=== PATIENT | male | born 1980 | race Caucasian/White ===

== ENCOUNTER 2016-07-01 08:12 | Inpatient (IN) | payer OTHER ==
[~2016-07-01] VITALS: Ht 185.4 cm; Wt 110.8 kg
[~2016-07-01 08:12] MED LIST: MULTIVIT PO; TRAZ100T OR; ZOLO100T OR
[2016-07-01] MEDS ORDERED: OLAN15TA PO (08:25)
[2016-07-01] MEDS ORDERED: FLUO20CA8 PO (08:25)
[2016-07-01] MEDS ORDERED: LOSA50TA20 PO (08:25)
[2016-07-01] MEDS ORDERED: HYDR25T PO (08:25)
[2016-07-01] MEDS ORDERED: ALEV220C2 PO (08:25)
[2016-07-01] MEDS ORDERED: KETOROLAC 30 MG/ML VIAL (J1885) IV ONE (08:45)
[2016-07-01] MEDS: SENOKOT S TAB PO SCH ×2 (09:00→22:39)
[2016-07-01 09:17] LABS: BASO % 0.3 % (0.0-1.0); EOS % 0.5 % (0.0-3.0); LARGE UNSTAINED CELL # 0.1 K/mm3 (0.0-0.4); LARGE UNSTAINED CELL % 0.7 % (0.0-4.0); LYMPH # 1.2 K/mm3 (1.5-4.5); LYMPH % 12.3 % (24.0-44.0); MEAN CORPUSCULAR HEMOGLOBIN 28.7 pg (27.0-33.0); MEAN CORPUSCULAR HGB CONC 34.9 g/dl (32.0-36.5); MEAN CORPUSCULAR VOLUME 82.2 fl (80.0-96.0); MONO # 0.6 K/mm3 (0.0-0.8); MONO % 6.2 % (0.0-5.0); NEUTROPHILS # 7.5 K/mm3 (1.8-7.7); NEUTROPHILS % 80.1 % (36.0-66.0); PLATELET COUNT, AUTOMATED 167 k/mm3 (150-450); RED CELL DISTRIBUTION WIDTH 12.5 % (11.5-14.5); WHITE BLOOD COUNT 9.4 K/mm3 (4.0-10.0)
--- NOTE | 2016-07-01 09:20 | REP ---
REASON: Chest pain. COMPARISON: 08/10/2013, the latest prior. The lung frye are hypoexpanded which crowds the basal vascularity. A few patchy opacities are seen in the left lower lobe representing a change from the prior exam. The cardiomediastinal silhouette is stable. The heart is not frankly enlarged. The osseous structures are stable and intact. IMPRESSION: Subsegmental atelectatic change left lower lobe versus early pneumonia. Correlate clinically. Signed by Oniel Conway DO 07/01/2016 09:24 A
[2016-07-01 09:24] LABS: ANION GAP 10 MEQ/L (8-16); BLOOD UREA NITROGEN 12 MG/DL (7-18); CARBON DIOXIDE LEVEL 25 MEQ/L (21-32); CHLORIDE LEVEL 104 MEQ/L (98-107); CREATININE FOR GFR 1.31 MG/DL (0.70-1.30); GLOMERULAR FILTRATION RATE > 60.0 (>60); GLUCOSE, FASTING 150 MG/DL (70-105); INR 1.03; SODIUM LEVEL 139 MEQ/L (136-145)
[2016-07-01] MEDS ORDERED: ISOVUE-370 76% 100ML VIAL (Q9967) As Ordered ONE (09:50)
--- NOTE | 2016-07-01 10:25 | REP ---
CT of the chest CT pulmonary angiography: Comparison is 08/10/2013. There is a large embolus in the distal left central pulmonary artery. There are emboli in the proximal right upper lobe, right middle lobe and right lower lobe pulmonary arteries. Additionally, there is an embolus distally in the pulmonary artery to the posterior basilar segment of the right lower lobe. There is an infiltrate in the left lower lobe. The remainder of the lung frye are clear. There is no mediastinal or hilar adenopathy. Thoracic aorta is unremarkable. Cardiac size is normal. There is no pericardial effusion. The visualized upper abdominal contents are unremarkable. Impression: Bilateral pulmonary emboli as described. Left lower lobe infiltrate. Signed by Mitesh Wilkinson MD 07/01/2016 10:16 A
[2016-07-01] MEDS ORDERED: MORPHINE 4 MG/ML 1ML SYRINGE IV ONE (10:30)
[2016-07-01] MEDS ORDERED: ENOXAPARIN 120 MG/0.8 ML SYR (J1650) SC ONE (10:45)
--- NOTE | 2016-07-01 11:19 | ECGEPIP ---
Stationary ECG Study [facility] - ED Test Date: 2016-07-01 Pat Name: JANI PEPE Department: Room: - Gender: M Marketing Clerk: EDUARDO : 1980 Requested By: Kyle Roy PA-C Order Number: [id number] Reading MD: Roberto Starks Measurements Intervals [place] Rate: 107 P: 37 NE: 123 QRS: 5 QRSD: 90 T: 14 QT: 315 QTc: 422 Interpretive Statements SINUS TACHYCARDIA NONSPECIFIC T-WAVE ABNORMALITY SIMILAR TO 08/10/13 Electronically Signed On 07-01-2016 11:18:51 EDT by Roberto Starks
[2016-07-01] MEDS ORDERED: VITMTA PO (11:40)
[2016-07-01] MEDS ORDERED: NS 1,000 ML IV SCH (13:00)
[2016-07-01] MEDS ORDERED: ONDANSETRON 4MG/2ML VIAL (J2405) IV PRN (13:00)
[2016-07-01] MEDS ORDERED: ELIQ5TAB PO (13:15)
--- NOTE | 2016-07-01 13:58 | REP ---
BILATERAL LOWER EXTREMITY DOPPLER VENOUS ULTRASOUND: Comparison: 08/10/2013. Clinical history: Swelling, rule out DVT. Technique: The deep venous system of the bilateral lower extremities is evaluated with mandel scale imaging, compression ultrasound, color imaging and duplex Doppler interrogation. Examination from the groin through the popliteal fossa into the proximal calf. Findings: There is full compressibility from the common femoral vein in the inguinal region through the popliteal vein on both sides. Color imaging confirms patency throughout the course of the deep venous system. There is respiratory variation and augmented flow at all levels. Impression: 1. No Doppler venous ultrasound evidence of DVT in the bilateral lower extremities. Signed by Zuhair Son MD 07/01/2016 01:49 P
--- NOTE | 2016-07-01 15:11 | HPE ---
DATE OF ADMISSION: 07/01/2016 PRIMARY CARE PROVIDER: Dr. Halley Mireles CHIEF COMPLAINT: Chest pain with breathing. HISTORY OF PRESENT ILLNESS: This is a 36-year-old male patient with underlying medical history of hypertension, anxiety, depression, and umbilical hernia following with Dr. Blue. As per patient, he has not been working these days, has mainly been sedentary due to umbilical hernia and starting at 8:00 p.m. last night, patient had acute onset left-sided chest pain that is pleuritic in nature, worse with deep breathing, relieved with sitting up, worse when lying down, radiating to the back, 10/10, sharp. Patient recently has been sedentary due to umbilical hernia. Patient denies any shortness of breath, palpitations, abdominal pain, bleeding, or bruising. Denies smoking or drug use. No recent travel, long flights or long drives. Baseline ambulatory. Also reported two weeks ago with left-sided thigh pain that has since then resolved. ALLERGIES: No known drug allergies. PAST MEDICAL HISTORY: 1. Hypertension. 2. Depression. 3. Anxiety. PAST SURGICAL HISTORY: Right foot surgery. SOCIAL HISTORY: Patient currently is unemployed. He lives at home. Does not smoke or drink alcoholic beverages. FAMILY HISTORY: Grandfather with myocardial infarction ([place]) in age 60s. Family history of colon cancer and diabetes. REVIEW OF SYSTEMS: 11-point review of systems negative except for those mentioned in the history of present illness (HPI). HOME MEDICATIONS: - Aleve 440 mg by mouth as needed - fluoxetine 20 mg by mouth every evening - hydroxyzine 25 mg by mouth twice a day - losartan 50 mg by mouth every evening - multivitamin one tablet by mouth daily - olanzapine 15 mg by mouth at bedtime PHYSICAL EXAMINATION: VITAL SIGNS: Temperature 97.8, pulse 113, respiratory rate 20, blood pressure 131/77, pulse oximetry 94% on room air. GENERAL: Patient alert and oriented times three in no acute distress. HEENT: Normocephalic, atraumatic. PULMONARY: Mild rhonchi, left base. CARDIAC: Regular rate and rhythm, mild tachycardia, S1, S2. ABDOMEN: Soft, nontender. Umbilical hernia reducible. No rebound. No guarding. Positive bowel sounds. EXTREMITIES: No edema of bilateral lower extremities. EKG: Sinus tachycardia 1/7, T wave inversion in V1, V2. LABORATORY DATA: WBC 9.4, hemoglobin and hematocrit 16.4/46.9, platelets 167. Chemistry: Sodium 139, potassium 4, chloride 104, bicarbonate 25, BUN 12, creatinine 1.3. Cardiac enzymes negative times two. C-reactive protein 4.87, A1c 5. CT angiogram shows bilateral PE, left lower lobe infiltrates. ASSESSMENT AND PLAN: This is a 36-year-old male patient with underlying medical history of umbilical hernia, hypertension, depression, and anxiety admitted with bilateral pulmonary embolism (PE) and questionable community-acquired bacterial pneumonia. 1. Chest pain, secondary to bilateral PE. Cardiac enzyme negative times two. Patient given a dose of Lovenox, started on Eliquis for PE. CT angiogram appreciated. Possible alternative etiology pneumonia. We will continue to monitor the patient on telemetry. 2. Bilateral PE. Patient given a dose of Lovenox. Hypercoagulable workup has been sent. Outpatient followup with primary care provider for an age appropriate oncologic workup. PE with unknown etiology. Lovenox given. Patient currently on Eliquis. Patient and family services (PFS) consulted for possible prior authorization. 3. Acute kidney injury (WILLY), likely secondary to taking of nonsteroidal antiinflammatory drugs (NSAIDs) at home. IV hydration, monitor blood urea nitrogen (BUN) and creatinine. 4. Depression and anxiety. Continue home medications. 5. Hypertension. Monitor blood pressure. Holding angiotensin receptor blockers (ARBs) given patient with worsening kidney function. 6. Umbilical hernia. Outpatient followup. 7. Questionable left lower lobe community-acquired bacterial pneumonia versus pulmonary infarct. Followup C-reactive protein appreciated. Empirically started on Rocephin and azithromycin. Followup respiratory panel and blood cultures. We will continue to monitor. 8. Deep vein thrombosis (DVT) prophylaxis. Patient is on treatment for PE on Eliquis. DISPOSITION: Pending patient and family services (PFS), clinical improvement, prior authorization for Eliquis.
[2016-07-01 16:15] VITALS: BP 105/57
[2016-07-01] MEDS: MULTIVITAMINS/MINERALS THERAP 1 TAB PO SCH (16:56)
[2016-07-01] MEDS: PERCOCET 5MG/325MG TAB PO PRN ×2 (16:58→22:41)
[2016-07-01] MEDS: cefTRIAXone SOD 2 GM in D5W MINI-BAG PLUS 50 ML IV SCH (16:58)
[2016-07-01] MEDS: AZITHROMYCIN INJ 500 MG, VIAL MATE ADAPTER 1 EACH in D5W 250 ML IV SCH (17:58)
[2016-07-01 20:03] VITALS: BP 100/57
[2016-07-01] MEDS: hydrOXYzine 25 MG TAB PO SCH (20:32)
[2016-07-01] MEDS: OLANZapine 5 MG TAB PO SCH (20:32)
[2016-07-01] MEDS: APIXABAN 5 MG TAB (ELIQUIS) PO SCH (20:33)
[2016-07-01] MEDS: FLUoxetine 20 MG CAP PO SCH (20:33)
[2016-07-01 21:21] VITALS: BP 117/71
[2016-07-02] VITALS (7 sets, daily range): BP systolic 100–136; BP diastolic 57–87
[2016-07-02 06:12] LABS: MEAN CORPUSCULAR HEMOGLOBIN 29.1 pg (27.0-33.0); MEAN CORPUSCULAR HGB CONC 34.7 g/dl (32.0-36.5); RED CELL DISTRIBUTION WIDTH 12.6 % (11.5-14.5); WHITE BLOOD COUNT 6.3 K/mm3 (4.0-10.0)
[2016-07-02] MEDS: PERCOCET 5MG/325MG TAB PO PRN ×3 (06:23→17:28)
[2016-07-02 06:29] LABS: ANION GAP 7 MEQ/L (8-16); BLOOD UREA NITROGEN 14 MG/DL (7-18); CALCIUM LEVEL 8.3 MG/DL (8.5-10.1); CARBON DIOXIDE LEVEL 27 MEQ/L (21-32); CHLORIDE LEVEL 106 MEQ/L (98-107); CREATININE FOR GFR 1.03 MG/DL (0.70-1.30); GLOMERULAR FILTRATION RATE > 60.0 (>60); GLUCOSE, FASTING 98 MG/DL (70-105); MAGNESIUM LEVEL 2.2 MG/DL (1.8-2.4); POTASSIUM SERUM 4.3 MEQ/L (3.5-5.1); SODIUM LEVEL 140 MEQ/L (136-145)
[2016-07-02] MEDS: SENOKOT S TAB PO SCH ×2 (08:29→20:29)
[2016-07-02] MEDS: APIXABAN 5 MG TAB (ELIQUIS) PO SCH ×2 (08:29→20:29)
[2016-07-02] MEDS: hydrOXYzine 25 MG TAB PO SCH ×2 (08:29→20:29)
[2016-07-02] MEDS: MULTIVITAMINS/MINERALS THERAP 1 TAB PO SCH (08:29)
--- NOTE | 2016-07-02 13:16 | IPN ---
DATE: 07/02/2016 The patient seen and examined. No acute events overnight. He denies any fevers or chills. Continued to report left sided pleuritic chest pain radiating to the left shoulder and neck. Denies any shortness of breath, coughing, abdominal pain, diarrhea, constipation. Denies any significant bleeding. VITAL SIGNS: Temperature 97. Pulse 71. Respirations 18. Blood pressure 118/74. Pulse oximetry 95% on 3 liters nasal cannula. LABORATORY: WBC 6.3, hemoglobin and hematocrit 13.7 over 39.6, and platelets 115. Chemistry with sodium 140, potassium 4.3, chloride 106, bicarbonate 27, BUN 14, creatinine 1.03. PHYSICAL EXAMINATION: GENERAL: Patient is alert and oriented times three in no acute distress. HEENT: Normocephalic, atraumatic. NECK: Supple. No nuchal rigidity. PULMONARY: Mild left basilar rhonchi. CARDIAC: Regular rate and rhythm. Normal S1, S2. ABDOMEN: Soft. Nontender. No rebound. No guarding. Positive bowel sounds. EXTREMITIES: No edema of bilateral lower extremities. ASSESSMENT AND PLAN: This is a 36-year-old male patient with underlying medical history of umbilical hernia, hypertension, depression, anxiety, admitted with bilateral pulmonary embolism (PE) and questionable community acquired bacterial pneumonia. PROBLEMS: 1. Chest pain secondary to bilateral PE. Cardiac enzymes negative times two. One dose of Lovenox given. Patient currently on Eliquis. CT angiogram appreciated. Ultrasound Doppler negative for deep vein thrombosis. Alternative explanation of pneumonia. Continue to monitor on telemetry. 2. Possible community acquired bacterial pneumonia. CT scan shows evidence of pneumonia with elevated C-reactive protein. Alternative explanation pulmonary infarct. Will empirically start the patient on Rocephin and azithromycin. Follow up C-reactive protein. Follow up cultures. 3. Acute kidney injury (WILLY), likely secondary to taking NSAID. IV hydration given. BUN and creatinine currently returning to baseline. 4. Anxiety and depression. Continue home medications. 5. Hypertension. Monitor blood pressure with holding MIGUE inhibitors given worsening kidney function. 6. Umbilical hernia. Outpatient followup. 7. Deep vein thrombosis prophylaxis. Patient on Eliquis for PE. DISPOSITION: Patient's Eliquis has been approved. Pending clinical improvement, likely discharge in the next 24-48 hours.
[2016-07-02] MEDS: cefTRIAXone SOD 2 GM in D5W MINI-BAG PLUS 50 ML IV SCH (14:30)
[2016-07-02] MEDS: AZITHROMYCIN INJ 500 MG, VIAL MATE ADAPTER 1 EACH in D5W 250 ML IV SCH (15:22)
--- NOTE | 2016-07-02 16:18 | REP ---
DUPLEX CAROTID ULTRASOUND COMPLETE: 07/02/2016. Clinical history: Left-sided neck pain and 36-year-old male. No prior study. Findings: Standard duplex techniques utilized. The right common carotid is without softer calcific plaque. There is small amounts of soft plaque at the bulb and extending to the proximal ICA and ECA. The left common carotid shows no softer calcific plaque except at the distal carotid bulb region where there is small amount of soft plaque of this is seen extending into the proximal ICA and ECA as on the right side. Peak velocities: CCA systolic right 1.01 M/S left 1.20 M/S ICA systolic right 0.82 M/S left 1.21 M/S ICA diastolic right through 0.16 less of 0.33 M/S ECA systolic right 1.23 left 1.0 seventh/S IC/CC ratio right 0.81 left 1.0 Cranial directional flow is seen in both vertebral arteries. There is no spectral broadening or filling in of the systolic window for either internal carotid artery. Impression: 1. Bilateral mild carotid disease (less than 50% stenosis). No hemodynamically significant or flow restricting lesion. 2. Cranial directional flow of the vertebral arteries. Signed by Zuhair Son MD 07/02/2016 04:09 P
[2016-07-02] MEDS: MORPHINE 2 MG/ML 1ML SYRINGE IV PRN ×2 (20:28→23:52)
[2016-07-02] MEDS: OLANZapine 5 MG TAB PO SCH (20:29)
[2016-07-02] MEDS: FLUoxetine 20 MG CAP PO SCH (20:29)
[2016-07-03 04:00] VITALS: BP 123/71
[2016-07-03] MEDS: MORPHINE 2 MG/ML 1ML SYRINGE IV PRN (04:08)
[2016-07-03 05:20] LABS: MEAN CORPUSCULAR HEMOGLOBIN 28.7 pg (27.0-33.0); MEAN CORPUSCULAR HGB CONC 34.3 g/dl (32.0-36.5); MEAN CORPUSCULAR VOLUME 83.6 fl (80.0-96.0); RED CELL DISTRIBUTION WIDTH 12.5 % (11.5-14.5)
[2016-07-03 05:38] LABS: ANION GAP 14 MEQ/L (8-16); BLOOD UREA NITROGEN 10 MG/DL (7-18); CALCIUM LEVEL 8.6 MG/DL (8.5-10.1); CARBON DIOXIDE LEVEL 24 MEQ/L (21-32); CHLORIDE LEVEL 110 MEQ/L (98-107); CREATININE FOR GFR 0.84 MG/DL (0.70-1.30); GLOMERULAR FILTRATION RATE > 60.0 (>60); GLUCOSE, FASTING 107 MG/DL (70-105); MAGNESIUM LEVEL 2.1 MG/DL (1.8-2.4); POTASSIUM SERUM 4.2 MEQ/L (3.5-5.1); SODIUM LEVEL 148 MEQ/L (136-145)
[2016-07-03] MEDS: PERCOCET 5MG/325MG TAB PO PRN ×3 (06:41→18:37)
[2016-07-03 08:00] VITALS: BP 107/66
[2016-07-03] MEDS: hydrOXYzine 25 MG TAB PO SCH ×2 (09:21→20:15)
[2016-07-03] MEDS: MULTIVITAMINS/MINERALS THERAP 1 TAB PO SCH (09:21)
[2016-07-03] MEDS: SENOKOT S TAB PO SCH ×2 (09:21→20:15)
[2016-07-03] MEDS: APIXABAN 5 MG TAB (ELIQUIS) PO SCH ×2 (09:21→20:16)
--- NOTE | 2016-07-03 10:05 | REP ---
CHEST X-RAY: Two views. HISTORY: Chest pain. Comparison study July 01, 2016. FINDINGS: There is a fairly large dense new infiltrate in the left lower lobe behind the heart on the frontal and lateral radiographs. Right lung is unchanged and unremarkable. Heart itself is not enlarged. Pulmonary vasculature is not increased. EKG monitoring electrodes and oxygen tubing are seen. IMPRESSIONS: Large dense new infiltrate left lower lobe consistent with pneumonia. Signed by Gary Bender MD 07/03/2016 01:58 P
[2016-07-03 12:00] VITALS: BP 119/73
[2016-07-03] MEDS: cefTRIAXone SOD 2 GM in D5W MINI-BAG PLUS 50 ML IV SCH (13:55)
[2016-07-03] MEDS: AZITHROMYCIN 250 MG TAB PO SCH (13:56)
--- NOTE | 2016-07-03 15:38 | IPN ---
DATE: 07/03/2016 SUBJECTIVE: Patient seen and examined. No acute events overnight. Reported chest pain about the same as yesterday, but yesterday afternoon was slightly worse. Denies any fevers, chills, any significant cough or shortness of breath. VITAL SIGNS: Temperature 99.1, pulse 67, respirations 18, blood pressure 119/73, pulse oximetry 94% on room air. LABORATORY DATA: WBC 6, hemoglobin and hematocrit 13.3 over 38.6, platelets 131. Chemistry: Sodium 148, potassium 4.2, chloride 110, bicarbonate 24, BUN 10, creatinine 0.84. PHYSICAL EXAMINATION: GENERAL: Patient alert and oriented times three, no acute distress. HEENT: Normocephalic, atraumatic. NECK: Supple. No nuchal rigidity. PULMONARY: Mild left bibasilar rhonchi. CARDIAC: Regular rate and rhythm. Normal S1, S2. ABDOMEN: Soft, nontender. Positive bowel sounds. No rebound, no guarding. EXTREMITIES: No edema bilateral lower extremities. ASSESSMENT AND PLAN: This is a 36-year-old male patient with underlying medical history of umbilical hernia, hypertension, depression, anxiety, admitted with bilateral pulmonary emboli, with questionable community-acquired lobar bacterial pneumonia. 1. Chest pain secondary to bilateral pulmonary emboli (PE) versus pneumonia. Cardiac enzymes negative times two. Patient given one dose of Lovenox. Currently on Eliquis. CT angiogram appreciated. Ultrasound Doppler negative for deep venous thrombosis (DVT). Continue to monitor telemetry. 2. Possible lobar community-acquired bacterial pneumonia. CT shows evidence of pneumonia with elevated C-reactive protein. Alternative explanation pulmonary infarct. Will empirically start the patient on Rocephin and Zithromax. Followup C-reactive protein. Followup cultures. 3. Acute kidney injury (WILLY) likely secondary to non-steroidal anti-inflammatory drugs (NSAIDs). Intravenous (IV) fluids given. BUN and creatinine returned to baseline. 4. Anxiety and depression. Continue home medications. 5. Hypertension. Monitor blood pressure. Withholding angiotension-converting enzyme (MIGUE) inhibitors, given worsening kidney function. We will continue to monitor. Will restart blood pressure medication if patient is hypertensive. 6. Umbilical hernia. Outpatient followup with [facility]. 7. Deep venous thrombosis (DVT) prophylaxis. Patient on Eliquis for treatment of PE. DISPOSITION: Eliquis has been approved. Pending clinical improvement.
[2016-07-03 16:00] VITALS: BP 120/76
[2016-07-03] MEDS: OLANZapine 5 MG TAB PO SCH (20:15)
[2016-07-03] MEDS: FLUoxetine 20 MG CAP PO SCH (20:15)
[2016-07-03 20:20] VITALS: BP 126/65
[2016-07-03 23:59] VITALS: BP 126/69
[2016-07-04] MEDS ORDERED: SLF 3 ML SYR IV PRN (01:15)
[2016-07-04] MEDS: PERCOCET 5MG/325MG TAB PO PRN ×2 (01:34→08:32)
[2016-07-04 04:45] VITALS: BP 123/70
[2016-07-04 05:37] LABS: ANION GAP 8 MEQ/L (8-16); BLOOD UREA NITROGEN 9 MG/DL (7-18); CALCIUM LEVEL 7.9 MG/DL (8.5-10.1); CARBON DIOXIDE LEVEL 28 MEQ/L (21-32); CHLORIDE LEVEL 106 MEQ/L (98-107); CREATININE FOR GFR 0.85 MG/DL (0.70-1.30); GLOMERULAR FILTRATION RATE > 60.0 (>60); GLUCOSE, FASTING 97 MG/DL (70-105); MAGNESIUM LEVEL 2.2 MG/DL (1.8-2.4); SODIUM LEVEL 142 MEQ/L (136-145)
[2016-07-04 05:39] LABS: MEAN CORPUSCULAR HEMOGLOBIN 29.2 pg (27.0-33.0); MEAN CORPUSCULAR HGB CONC 34.8 g/dl (32.0-36.5); RED CELL DISTRIBUTION WIDTH 12.4 % (11.5-14.5); WHITE BLOOD COUNT 4.8 K/mm3 (4.0-10.0)
[2016-07-04] MEDS ORDERED: SLF 3 ML SYR IV SCH (06:00)
[2016-07-04 08:00] VITALS: BP 123/69
[2016-07-04] MEDS: APIXABAN 5 MG TAB (ELIQUIS) PO SCH (08:32)
[2016-07-04] MEDS: MULTIVITAMINS/MINERALS THERAP 1 TAB PO SCH (08:32)
[2016-07-04] MEDS: hydrOXYzine 25 MG TAB PO SCH (08:32)
[2016-07-04] MEDS: AZITHROMYCIN 250 MG TAB PO SCH (08:33)
[2016-07-04] MEDS: SENOKOT S TAB PO SCH (08:33)
[2016-07-04] MEDS ORDERED: NORC5TAB PO (09:05)
[2016-07-04] MEDS ORDERED: CEFD1CAP8 PO (09:05)
--- NOTE | 2016-07-05 19:43 | DSES ---
DATE OF ADMISSION: 07/01/2016 DATE OF DISCHARGE: 07/04/2016 PRIMARY CARE PROVIDER: Dr. Halley Mireles. FINAL DIAGNOSES: 1. Bilateral pulmonary emboli. 2. Left lower lobe community-acquired bacterial pneumonia. 3. Acute kidney injury (WILLY) secondary to non-steroidal anti-inflammatory drugs (NSAIDS). 4. Anxiety/depression. 5. Umbilical hernia. HISTORY OF PRESENT ILLNESS: This is a 36-year-old male patient with underlying medical history of hypertension, anxiety, depression, umbilical hernia, follows up with Dr. Blue. As per patient, he has not been working or moving much these days due to umbilical hernia. Has been sedentary. Starting 8 p.m. the night before admission, the patient developed acute onset left-sided chest pain that is pleuritic in nature, radiating to the back and left shoulder when sitting up, worsening when lying down, relieved with sitting up, 10/10, sharp. Denies any shortness of breath, palpitations, abdominal pain, bleeding, bruising, nausea, vomiting. Denies smoking. No recent travel. No long flights or long drives. Baseline ambulatory. Does report episodes of left thigh pain for the past couple of weeks ago. HOSPITAL COURSE: The patient was found to have bilateral pulmonary emboli (PE) and questionable left lower lobe pneumonia on the CT scan. Started on Rocephin and azithromycin. Given a dose of Lovenox. Was started on Eliquis. Patient and family services (PFS) consulted for prior authorization which was approved. Ultrasound Doppler negative for deep venous thrombosis (DVT). Carotid Doppler is negative for dissections. C-reactive protein progressively trended down. Cultures were negative. Intravenous (IV) fluids were given. WILLY has solved back to baseline. NSAID has been discontinued. The patient's home medication was restarted. Blood pressure medication has also been held given patient is normotensive. DVT prophylaxis is provided with Eliquis. The patient currently tolerating oral, comfortable, in no acute distress, ready for discharge for further care as outpatient. Pain medication was given. VITAL SIGNS: Temperature 98.4, pulse 56, respirations 18, blood pressure 123/69, pulse oximetry 93% on room air. LABORATORY DATA: WBC 4.8, hemoglobin and hematocrit 12.7 over 36.6, platelets 154. Chemistry: Sodium 142, potassium 4, chloride 106, bicarbonate 28, BUN 9, creatinine 0.85. DISCHARGE MEDICATIONS: - [place] 5/325 one tablet by mouth every six hours as needed, 12 tablets prescribed - Eliquis 5 mg tablet take two tablets by mouth twice a day, and then take 5 mg by mouth twice a day - cefdinir 300 mg by mouth twice a day for six more days Patient's home medications of fluoxetine 20 mg by mouth daily, hydroxyzine 25 mg by mouth twice a day, multivitamin one tablet by mouth daily, and olanzapine 50 mg by mouth at bedtime were continued. Losartan was discontinued, as well as Aleve was discontinued. DISCHARGE INSTRUCTIONS: The patient is instructed to followup with primary care provider in seven days. Followup hypercoagulable workup that was done at the hospital. Return to the hospital if symptoms worsen.
[2016-07-06 14:11] LABS: PROTEIN C ANTIGEN 90 % (60-150); PROTEIN S ANTIGEN FREE 70 % (57-157); PROTEIN S ANTIGEN TOTAL 149 % (60-150); SJOGREN'S ANTI SS-A <0.2 AI (0.0-0.9); SJOGREN'S ANTI SS-B <0.2 AI (0.0-0.9)
== END 2016-07-04 11:19 | disposition home or self-care (01) | DRG 134 ==
LOC: M ED 10:17 → M ED INP 12:56 → M PCU 21:01
PROVIDERS: ADMIT Hospitalist; ATTEND Hospitalist
DX: I26.99 Other pulmonary embolism without acute cor pulmonale (principal); J15.9 Unspecified bacterial pneumonia; N17.9 Acute kidney failure, unspecified; F41.9 Anxiety disorder, unspecified; F32.9 Major depressive disorder, single episode, unspecified; K42.9 Umbilical hernia without obstruction or gangrene; I10 Essential (primary) hypertension; Z79.899 Other long term (current) drug therapy

== ENCOUNTER → 2016-08-10 | Outpatient (CLI) | payer OTHER ==
[~2016-08-10] MED LIST changes: +ALEV220C2 PO; +CEFD1CAP8 PO; +ELIQ5TAB PO; +FLUO20CA8 PO; +HYDR25T PO; +LOSA50TA20 PO; +NORC1TAB4 PO; +OLAN15TA PO; +VITMTA PO
--- NOTE | 2016-08-10 14:09 | REP ---
Chest two views HISTORY: Hypertension Comparison: 07/03/2016 The lungs are clear. The heart is normal in size. The pulmonary vasculature is normal in appearance. The bony structure is intact. IMPRESSION: No acute disease. Signed by Alonzo El MD 08/10/2016 02:01 P
== END ==
LOC: M WUC 13:38
PROVIDERS: ATTEND Family Medicine
DX: I10 Essential (primary) hypertension (principal)

== ENCOUNTER 2016-12-29 05:49 | Day surgery (SDC) | payer OTHER ==
[~2016-12-29] VITALS: Ht 185.4 cm; Wt 116.6 kg
[~2016-12-29 05:49] MED LIST changes: +HYDR-3363 PO; -HYDR25T PO; +LITH300C PO
[2016-12-29] MEDS ORDERED: LR 1,000 ML IV SCH ×3 (06:00→10:45)
[2016-12-29] MEDS ORDERED: ceFAZolin SOD 1 GM in D5W MINI-BAG PLUS 50 ML IV ONE (06:00)
[2016-12-29] MEDS ORDERED: BUPIVACAINE/EPIN 0.25% 30 ML VIAL As Ordered ONE ×2 (07:18→08:37)
[2016-12-29] MEDS ORDERED: LIDOCAINE 2% INJ 100 MG/5 ML SDV (FOR ANES.) As Ordered ONE (09:23)
[2016-12-29] MEDS ORDERED: fentaNYL 100 MCG/2 ML INJECTION (J3010) As Ordered ONE ×2 (09:23→10:11)
[2016-12-29] MEDS ORDERED: PROPOFOL 200 MG/20 ML VIAL As Ordered ONE ×2 (09:23→09:43)
[2016-12-29] MEDS ORDERED: dexameTHASONE 4 MG/ML 1ML VIAL (J1100) As Ordered ONE (09:23)
[2016-12-29] MEDS ORDERED: MIDAZOLAM INJ 2 MG/2 ML VIAL (J2250) As Ordered ONE (09:23)
[2016-12-29] MEDS ORDERED: KETOROLAC 60 MG/2 ML VIAL (J1885) As Ordered ONE (09:23)
[2016-12-29] MEDS ORDERED: ONDANSETRON 4MG/2ML VIAL (J2405) As Ordered ONE (09:24)
--- NOTE | 2016-12-29 10:08 | RO ---
DATE OF PROCEDURE: 12/29/2016 PREOPERATIVE DIAGNOSIS: Umbilical hernia. POSTOPERATIVE DIAGNOSIS: Umbilical hernia. PROCEDURE: Umbilical hernia with ventral patch. SURGEON: Miguel Ángel Loyola MD ANESTHESIA: General endotracheal anesthesia. ESTIMATED BLOOD LOSS: Minimal. FLUIDS: Crystalloid. BRIEF PROCEDURE SUMMARY: The patient was brought to the operating room and was given general anesthesia. After adequate anesthesia and preoperative antibiotics were given, the patient was prepped and draped in the usual sterile fashion. Next, a periumbilical incision was made with skin knife. Blunt dissection was carried down to fascia. Fascia was cleared of surrounding subcutaneous fat off the hernia sac itself circumferentially with electrocautery, as well as blunt dissection. Eventually, the dissection continued all the way to the base of the hernia sac and this was transected at the level of the fascia and there was some omentum that was sticking through this area that was somewhat incarcerated and it was transected after ligating its base with #2-0 Vicryl returned to the abdominal cavity. The fascial defect was relatively large, approximately 1.5 cm and the minimally attenuated fascia superiorly. Thus, I felt a ventral patch was warranted. A 6 cm ventral patch was placed and circumferentially this was palpated to be up against the peritoneum once it was inserted. Next, the tails of the mesh was sutured superiorly and inferiorly and the fascia was closed with three [id number] Ethibond sutures in a transverse manner. The subcutaneous tissue was brought together with the #3-0 Vicryl, #3-0 Vicryl for the dermis and #4-0 Vicryl subcuticular. Steri-Strips and dry sterile dressing was applied. The patient was awakened, extubated, brought to recovery room awake, alert and hemodynamically stable. Sponge and needle counts correct times two.
[2016-12-29] MEDS ORDERED: PERCOCET 5MG/325MG TAB As Ordered ONE (10:11)
[2016-12-29] MEDS: fentaNYL 100 MCG/2 ML INJECTION (J3010) IV PRN ×4 (10:14→10:30)
[2016-12-29] MEDS: PERCOCET 5MG/325MG TAB PO PRN ×2 (10:15→10:47)
[2016-12-29] MEDS ORDERED: ONDANSETRON 4MG/2ML VIAL (J2405) IV PRN ×2 (10:30→10:45)
[2016-12-29] MEDS ORDERED: MORPHINE 2 MG/ML 1ML SYRINGE IV PRN (10:45)
[2016-12-29 13:58] VITALS: BP 130/75
[2016-12-29] MEDS ORDERED: KETOROLAC 30 MG/ML VIAL (J1885) IV SCH (15:00)
== END 2016-12-29 14:10 | disposition home or self-care (01) ==
LOC: M SDC 05:49
PROVIDERS: ATTEND Surgery
DX: K42.9 Umbilical hernia without obstruction or gangrene (principal); F31.9 Bipolar disorder, unspecified; Z86.711 Personal history of pulmonary embolism; Z79.02 Long term (current) use of antithrombotics/antiplatelets; Z79.899 Other long term (current) drug therapy
CPT/HCPCS: 49585; 88302; C1781

== ENCOUNTER → 2017-05-15 | Outpatient (REF) | payer OTHER ==
[2017-05-15 14:35] LABS: INFLUENZA A AMPLIFICATION NEGATIVE (NEGATIVE); INFLUENZA B AMPLIFICATION NEGATIVE (NEGATIVE)
== END ==
LOC: M LAB REF 13:46
DX: J11.1 Influenza due to unidentified influenza virus with other respiratory manifestations (principal)
CPT/HCPCS: 87502

== ENCOUNTER 2017-05-20 15:45 | Emergency (ER) | payer OTHER ==
[2017-05-20] MEDS: ALBUTEROL SULFATE 2.5 MG/0.5 ML INH NEB SOLN INH (17:55)
[2017-05-20] MEDS: NS 1,000 ML IV (18:00)
[2017-05-20 18:19] LABS: BASO % 0.4 % (0.0-1.0); EOS # 0.1 10^3/uL (0.0-0.50); EOS % 1.1 % (0.0-3.0); HEMATOCRIT 48.7 % (42.0-52.0); HEMOGLOBIN 16.4 g/dl (14.0-18.0); IMMATURE GRANULOCYTE % 0.2 % (0-0); LYMPH # 1.4 10^3/uL (1.5-4.5); LYMPH % 29.5 % (24.0-44.0); MEAN CORPUSCULAR HEMOGLOBIN 28.5 pg (27.0-33.0); MEAN CORPUSCULAR HGB CONC 33.7 g/dl (32.0-36.5); MEAN CORPUSCULAR VOLUME 84.5 fl (80.0-96.0); MONO # 0.7 10^3/uL (0.0-0.8); MONO % 14.6 % (0.0-5.0); NEUTROPHILS # 2.6 10^3/uL (1.8-7.7); NEUTROPHILS % 54.2 % (36.0-66.0); PLATELET COUNT, AUTOMATED 140 10^3/uL (150-450); RED BLOOD COUNT 5.76 10^6/uL (4.30-6.10); RED CELL DISTRIBUTION WIDTH 12.9 % (11.5-14.5); WHITE BLOOD COUNT 4.7 10^3/uL (4.0-10.0)
[2017-05-20 18:29] LABS: PROTHROMBIN TIME 13.3 SECONDS (12.4-14.5)
[2017-05-20 18:30] LABS: PARTIAL THROMBOPLASTIN TIME 28.6 SECONDS (26.8-37.9)
[2017-05-20 18:49] LABS: INFLUENZA A AMPLIFICATION POSITIVE (NEGATIVE); INFLUENZA B AMPLIFICATION NEGATIVE (NEGATIVE)
[2017-05-20 18:51] LABS: ANION GAP 8 MEQ/L (8-16); BLOOD UREA NITROGEN 14 MG/DL (7-18); CALCIUM LEVEL 9.1 MG/DL (8.5-10.1); CARBON DIOXIDE LEVEL 28 MEQ/L (21-32); CHLORIDE LEVEL 106 MEQ/L (98-107); CPK CREATINE PHOSPHOKINASE 136 U/L (39-308); GLOMERULAR FILTRATION RATE > 60.0 (>60); GLUCOSE, FASTING 100 MG/DL (70-100); POTASSIUM SERUM 4.3 MEQ/L (3.5-5.1); SODIUM LEVEL 142 MEQ/L (136-145); TROPONIN I < 0.02 NG/ML (< 0.10)
[2017-05-20 18:52] LABS: MB/CK RELATIVE INDEX 0.73 (< OR =4)
[2017-05-20] MEDS ORDERED: ISOVUE-370 76% 100ML VIAL (Q9967) As Ordered (18:59)
== END 2017-05-20 19:46 | disposition home or self-care (01) ==
LOC: M ED 15:45
DX: J10.1 Influenza due to other identified influenza virus with other respiratory manifestations (principal); J20.8 Acute bronchitis due to other specified organisms
CPT/HCPCS: Q9967

== ENCOUNTER 2018-06-29 01:45 | Emergency (ER) | payer OTHER ==
[~2018-06-29] VITALS: Ht 185.4 cm; Wt 113.6 kg
[~2018-06-29 01:45] MED LIST changes: +AUGM875T28 PO; -LOSA50TA20 PO; +LOSA50TA88 PO; -NORC1TAB4 PO; +NORC1TAB7 PO; +SODIUM CHLORIDE 0.9% 1000ML ONE; +VENTAER IN
[2018-06-29] MEDS ORDERED: LOSA50TA88 PO (01:57)
[2018-06-29] MEDS ORDERED: FURO20TA2 PO (01:57)
[2018-06-29 02:05] LABS: BASO % 0.6 % (0.0-1.0); EOS # 0.1 10^3/uL (0.0-0.50); EOS % 0.8 % (0.0-3.0); HEMATOCRIT 44.2 % (42.0-52.0); HEMOGLOBIN 15.3 g/dl (13.5-17.5); LYMPH # 2.1 10^3/uL (1.5-4.5); LYMPH % 29.4 % (24.0-44.0); MEAN CORPUSCULAR HEMOGLOBIN 29.5 pg (27.0-33.0); MEAN CORPUSCULAR HGB CONC 34.6 g/dl (32.0-36.5); MEAN CORPUSCULAR VOLUME 85.2 fl (80.0-96.0); MONO # 0.7 10^3/uL (0.0-0.8); MONO % 10.1 % (0.0-5.0); NEUTROPHILS # 4.2 10^3/uL (1.8-7.7); PLATELET COUNT, AUTOMATED 136 10^3/uL (150-450); RED BLOOD COUNT 5.19 10^6/uL (4.30-6.10); WHITE BLOOD COUNT 7.2 10^3/uL (4.0-10.0)
[2018-06-29 02:06] LABS: INR 1.17; PARTIAL THROMBOPLASTIN TIME 29.3 SECONDS (25.4-37.6); PROTHROMBIN TIME 15.1 SECONDS (12.1-14.4)
[2018-06-29 02:09] LABS: BLOOD UREA NITROGEN 17 MG/DL (7-18); CALCIUM LEVEL 8.6 MG/DL (8.5-10.1); CARBON DIOXIDE LEVEL 27 MEQ/L (21-32); CHLORIDE LEVEL 107 MEQ/L (98-107); CPK CREATINE PHOSPHOKINASE 491 U/L (39-308); CREATININE FOR GFR 1.21 MG/DL (0.70-1.30); GLOMERULAR FILTRATION RATE > 60.0 (>60); GLUCOSE, FASTING 88 MG/DL (70-100); MB/CK RELATIVE INDEX 0.77 (< OR =4); POTASSIUM SERUM 3.6 MEQ/L (3.5-5.1); SODIUM LEVEL 142 MEQ/L (136-145); TROPONIN I < 0.02 NG/ML (< 0.10)
[2018-06-29] MEDS ORDERED: ISOVUE-370 76% 100ML VIAL (Q9967) As Ordered ONE (02:27)
--- NOTE | 2018-06-29 04:36 | REPVR ---
EXAM: CT Angiography Chest With Contrast EXAM DATE/TIME: 06/29/2018 2:20 AM CLINICAL HISTORY: 38 years old, male; Chest pain; Type not specified; Pulmonary embolism evaluation TECHNIQUE: Axial computed tomographic angiography images of the chest with intravenous contrast using CT angiography protocol. All CT scans at this facility use at least one of these dose optimization techniques: automated exposure control; mA and/or kV adjustment per patient size (includes targeted exams where dose is matched to clinical indication); or iterative reconstruction. Coronal and sagittal reformatted images were created and reviewed. MIP reconstructed images were created and reviewed. CONTRAST: Contrast Material: 75 ml of iso; Contrast Route: ac COMPARISON: CTA CHEST 05/20/2017 FINDINGS: Pulmonary arteries: No evidence of large, central, pulmonary embolism. Aorta: Accurate evaluation of ascending aorta is difficult due to cardiac motion pulsation artifact. Aortic arch and descending thoracic aorta otherwise appear unremarkable. Lungs: No lung mass, consolidation, or significant pulmonary edema. Pleural space: No pneumothorax. No pleural effusion. Heart: . No cardiomegaly. No pericardial effusion. Stomach and bowel: Stomach moderately-distended with what appears to be recently-ingested food. Lymph nodes: Unremarkable. Bones/joints: Multiple, small, Schmorl nodes throughout thoracic spine. Soft tissues: Unremarkable. IMPRESSION: No CT evidence of large, central, pulmonary embolism. Electronically signed by: Supa Schreiber On 06/29/2018 04:35:55 AM
[2018-06-29 04:54] VITALS: BP 116/64
--- NOTE | 2018-08-26 19:09 | ECGEPIP ---
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
== END 2018-06-29 05:06 | disposition home or self-care (01) ==
LOC: M ED 01:45
DX: F41.1 Generalized anxiety disorder (principal); I10 Essential (primary) hypertension; Z86.711 Personal history of pulmonary embolism; Z79.899 Other long term (current) drug therapy; Z79.01 Long term (current) use of anticoagulants
CPT/HCPCS: 36415; 71275; 80048; 82550; 82553; 85025; 85610; 85730; 93005; 99284; Q9967

== ENCOUNTER → 2018-09-13 | Outpatient (REF) | payer OTHER ==
[~2018-09-13] MED LIST changes: +FURO20TA2 PO; -SODIUM CHLORIDE 0.9% 1000ML ONE
[2018-09-13 18:07] LABS: ALBUMIN 3.9 GM/DL (3.2-5.2); ALT/SGPT 73 U/L (12-78); BILIRUBIN,TOTAL 0.5 MG/DL (0.2-1.0); BLOOD UREA NITROGEN 18 MG/DL (7-18); CALCIUM LEVEL 9.1 MG/DL (8.5-10.1); CARBON DIOXIDE LEVEL 28 MEQ/L (21-32); CHLORIDE LEVEL 108 MEQ/L (98-107); CHOLESTEROL LEVEL 187 MG/DL (<200); CHOLESTEROL RISK RATIO 3.116 (<5); CREATININE FOR GFR 1.06 MG/DL (0.70-1.30); FREE T4 0.77 NG/DL (0.76-1.46); GLOMERULAR FILTRATION RATE > 60.0 (>60); GLUCOSE, FASTING 101 MG/DL (70-100); HDL CHOLESTEROL 60 MG/DL (>40); LDL CHOLESTEROL 107 MG/DL (<100); NON-HDL-C 127 MG/DL; POTASSIUM SERUM 4.4 MEQ/L (3.5-5.1); SODIUM LEVEL 142 MEQ/L (136-145); TRIGLYCERIDES LEVEL 101 MG/DL (<150)
[2018-09-13 18:10] LABS: TOTAL 25(OH) VITAMIN D 26.7 NG/ML (30.0-100.0)
[2018-09-13 18:24] LABS: BASO % 0.7 % (0.0-1.0); EOS # 0.1 10^3/uL (0.0-0.50); EOS % 2.1 % (0.0-3.0); HEMATOCRIT 44.3 % (42.0-52.0); HEMOGLOBIN 14.8 g/dl (13.5-17.5); LYMPH # 1.2 10^3/uL (1.5-4.5); MEAN CORPUSCULAR HEMOGLOBIN 29.2 pg (27.0-33.0); MEAN CORPUSCULAR HGB CONC 33.4 g/dl (32.0-36.5); MEAN CORPUSCULAR VOLUME 87.5 fl (80.0-96.0); MONO # 0.5 10^3/uL (0.0-0.8); MONO % 12.1 % (0.0-5.0); NEUTROPHILS # 2.4 10^3/uL (1.8-7.7); NEUTROPHILS % 56.9 % (36.0-66.0); PLATELET COUNT, AUTOMATED 145 10^3/uL (150-450); RED BLOOD COUNT 5.06 10^6/uL (4.30-6.10); WHITE BLOOD COUNT 4.2 10^3/uL (4.0-10.0)
[2018-09-13 19:21] LABS: HEMOGLOBIN A1c 5.6 %
[2018-09-13 20:04] LABS: APPEARANCE, URINE CLEAR (CLEAR); BACTERIA, URINE AUTO NEGATIVE (NEGATIVE); BILIRUBIN, URINE AUTO NEGATIVE (NEGATIVE); BLOOD, URINE BLOOD NEGATIVE (NEGATIVE); COLOR, URINE STRAW (YELLOW); GLUCOSE, URINE (UA) AUTO NEGATIVE (NEGATIVE); KETONE, URINE AUTO NEGATIVE (NEGATIVE); LEUKOCYTE ESTERASE, URINE AUTO NEGATIVE (NEGATIVE); NITRITE, URINE AUTO NEGATIVE (NEGATIVE); PROTEIN, URINE AUTO NEGATIVE (NEGATIVE); RBC, URINE AUTO 0 /HPF (0-3); SQUAMOUS EPITHELIAL CELL UR AU 0 /HPF (0-6); UROBILINOGEN, URINE AUTO 0.2 mg/dL (0.0-2.0); WBC, URINE AUTO 0 /HPF (0-3)
[2018-09-20 08:12] LABS: DRVV SCREEN 44.9 SEC
[2018-09-20 08:16] LABS: PTT LUPUS TYPE ANTICOAG SCREEN 1.1 (0-1.2)
[2018-09-20 08:57] LABS: Lyme Disease IgG/IgM Antibodie <0.91 ISR (0.00-0.90); Lyme Disease IgM Ab Quantitati <0.80 index (0.00-0.79)
== END ==
LOC: M LAB REF 16:32
PROVIDERS: ATTEND Internal Medicine Pulmonary Disease
DX: Z86.711 Personal history of pulmonary embolism (principal); R07.9 Chest pain, unspecified

== ENCOUNTER → 2018-09-20 | Outpatient (CLI) | payer OTHER ==
[2018-09-20 15:44] LABS: BLOOD UREA NITROGEN 15 MG/DL (7-18); CALCIUM LEVEL 8.4 MG/DL (8.5-10.1); CARBON DIOXIDE LEVEL 28 MEQ/L (21-32); CHLORIDE LEVEL 104 MEQ/L (98-107); CREATININE FOR GFR 1.07 MG/DL (0.70-1.30); GLOMERULAR FILTRATION RATE > 60.0 (>60); GLUCOSE, FASTING 96 MG/DL (70-100); POTASSIUM SERUM 4.3 MEQ/L (3.5-5.1); SODIUM LEVEL 140 MEQ/L (136-145)
--- NOTE | 2018-09-20 16:02 | REP ---
Lateral left lower extremity duplex veins History: Swelling There are no filling defects in the deep venous system. The deep venous system is patent. Impression: There is no deep venous thrombosis. Electronically Signed by Alonzo El MD 09/20/2018 03:53 P
== END ==
LOC: M LAB 14:56
PROVIDERS: ATTEND Family Medicine
DX: M79.89 Other specified soft tissue disorders (principal)

== ENCOUNTER → 2018-10-25 | Outpatient (CLI) | payer OTHER ==
[~2018-10-25] MED LIST changes: +ISOVUE-370 76% 100ML VIAL (Q9967) As Ordered ONE; +PARO20TA3 PO
--- NOTE | 2018-10-25 11:05 | REP ---
CT PULMONARY ANGIOGRAM: With IV contrast. HISTORY: Re-evaluation. History of pulmonary embolus. Chest pain. COMPARISON STUDIES: Comparison is made with June 29, 2018 study. July 01, 2016 prior study was read as positive for bilateral pulmonary emboli. CONTRAST DOSE: 75 mL of Isovue [address] TECHNIQUE: Helical scanning is acquired and overlapping 1.5 mm and contiguous 3 mm axial images are reformatted. In addition, maximum intensity projection and multiplanar re-formation images are generated in sagittal and coronal imaging projections. CT PULMONARY ANGIOGRAPHIC FINDINGS: There is good opacification of the pulmonary arterial tree. There is no CT evidence of pulmonary embolism. The thoracic aorta is normal in course and caliber and enhances homogeneously. No aneurysm or dissection is seen. There is no evidence of pleural or pericardial effusion. No hilar or mediastinal mass or adenopathy is observed. No infiltrate is noted in the lung frye. There is a somewhat linear zone of discoid atelectasis in the left base posterolaterally. This is unchanged from June 29, 2018 study. Lungs are free of infiltrate today. No nodule or mass is seen. No bony destructive lesion is appreciated. No adrenal lesion is seen. The visualized upper abdominal structures are unremarkable. IMPRESSION: No CT evidence of pulmonary embolus. Linear discoid atelectasis in the left lower lobe versus fibrosis. Otherwise no acute disease. Electronically Signed by Gary Bender MD 10/25/2018 04:52 P
== END ==
LOC: M RAD 09:05
PROVIDERS: ATTEND Family Medicine
DX: Z86.711 Personal history of pulmonary embolism (principal)
CPT/HCPCS: 71275; Q9967

== ENCOUNTER → 2018-12-14 | Outpatient (CLI) | payer OTHER ==
[~2018-12-14] MED LIST changes: -ISOVUE-370 76% 100ML VIAL (Q9967) As Ordered ONE
--- NOTE | 2018-12-14 14:02 | REP ---
Left lower extremity deep vein duplex ultrasound: The deep veins demonstrate normal compression, normal Doppler color flow and normal Doppler waveforms with respiration and augmentation from the popliteal vein to the common femoral vein. Impression: There is no left lower extremity deep vein thrombus. Electronically Signed by Mitseh Wilkinson MD 12/14/2018 01:18 P
== END ==
LOC: M RAD 12:34
PROVIDERS: ATTEND Nurse Practitioner Adult Health
DX: R22.42 Localized swelling, mass and lump, left lower limb (principal)

== ENCOUNTER → 2019-10-27 | Outpatient (REF) | payer OTHER, MEDICAID ==
[~2019-10-27] MED LIST changes: +FLUO20CA20 PO; -FLUO20CA8 PO
[2019-10-27 10:58] LABS: APPEARANCE, URINE CLEAR (CLEAR); BACTERIA, URINE AUTO NEGATIVE (NEGATIVE); BILIRUBIN, URINE AUTO NEGATIVE (NEGATIVE); BLOOD, URINE BLOOD NEGATIVE (NEGATIVE); COLOR, URINE YELLOW (YELLOW); GLUCOSE, URINE (UA) AUTO NEGATIVE (NEGATIVE); KETONE, URINE AUTO NEGATIVE (NEGATIVE); LEUKOCYTE ESTERASE, URINE AUTO NEGATIVE (NEGATIVE); NITRITE, URINE AUTO NEGATIVE (NEGATIVE); PROTEIN, URINE AUTO NEGATIVE (NEGATIVE); RBC, URINE AUTO 0 /HPF (0-3); SPECIFIC GRAVITY URINE AUTO 1.024 (1.002-1.035); SQUAMOUS EPITHELIAL CELL UR AU 0 /HPF (0-6); UROBILINOGEN, URINE AUTO 0.2 mg/dL (0.0-2.0); WBC, URINE AUTO 0 /HPF (0-3)
[2019-10-27 12:22] LABS: BASO % 0.5 % (0.0-1.0); EOS # 0.1 10^3/uL (0.0-0.5); EOS % 2.5 % (0.0-3.0); HEMATOCRIT 41.5 % (42.0-52.0); HEMOGLOBIN 13.5 g/dl (13.5-17.5); LYMPH # 1.4 10^3/uL (1.5-5.0); LYMPH % 34.7 % (24.0-44.0); MEAN CORPUSCULAR HEMOGLOBIN 28.4 pg (27.0-33.0); MEAN CORPUSCULAR HGB CONC 32.5 g/dl (32.0-36.5); MEAN CORPUSCULAR VOLUME 87.2 fl (80.0-96.0); MONO # 0.4 10^3/uL (0.0-0.8); MONO % 10.7 % (0.0-5.0); NEUTROPHILS # 2.1 10^3/uL (1.5-8.5); NEUTROPHILS % 51.4 % (36.0-66.0); PLATELET COUNT, AUTOMATED 120 10^3/uL (150-450); RED BLOOD COUNT 4.76 10^6/uL (4.30-6.10)
[2019-10-27 12:26] LABS: ALBUMIN 3.6 GM/DL (3.2-5.2); ALT/SGPT 41 U/L (12-78); BILIRUBIN,TOTAL 0.3 MG/DL (0.2-1.0); BLOOD UREA NITROGEN 16 MG/DL (7-18); CALCIUM LEVEL 8.2 MG/DL (8.5-10.1); CARBON DIOXIDE LEVEL 25 MEQ/L (21-32); CHLORIDE LEVEL 113 MEQ/L (98-107); CHOLESTEROL LEVEL 196 MG/DL (<200); CHOLESTEROL RISK RATIO 4.666 (<5); CREATININE FOR GFR 1.05 MG/DL (0.70-1.30); GLOMERULAR FILTRATION RATE > 60.0 (>60); GLUCOSE, FASTING 106 MG/DL (70-100); HDL CHOLESTEROL 42 MG/DL (>40); LDL CHOLESTEROL 127 MG/DL (<100); NON-HDL-C 154 MG/DL; POTASSIUM SERUM 4.1 MEQ/L (3.5-5.1); SODIUM LEVEL 142 MEQ/L (136-145); TOTAL PROTEIN 6.9 GM/DL (6.4-8.2); TRIGLYCERIDES LEVEL 136 MG/DL (<150)
[2019-10-27 13:09] LABS: HEMOGLOBIN A1c 6.4 %
[2019-10-27 13:14] LABS: HIV 1&2 SCREEN CENTAUR NEGATIVE (NEGATIVE)
[2019-11-08 13:07] LABS: TESTOSTERONE FREE (DIRECT) 7.6 pg/mL (8.7-25.1)
== END ==
LOC: M LAB REF 10:34
PROVIDERS: ATTEND Nurse Practitioner Family
DX: E66.9 Obesity, unspecified (principal); Z13.9 Encounter for screening, unspecified; N52.8 Other male erectile dysfunction; R73.03 Prediabetes

== ENCOUNTER 2020-08-18 11:30 | Emergency (ER) | payer OTHER, MEDICAID ==
[~2020-08-18] VITALS: Ht 185.4 cm; Wt 119.5 kg
[2020-08-18] MEDS ORDERED: ECOT81TA5 PO (11:44)
[2020-08-18] MEDS ORDERED: ACET-683 PO (11:44)
--- NOTE | 2020-08-18 13:22 | REP ---
INDICATION: twisted ankle COMPARISON: None. TECHNIQUE: AP, lateral, bilateral oblique views. FINDINGS: Generalized soft tissue swelling is appreciated. Small chronic fragments adjacent to the fibular tip suggest old injury. No acute fracture or dislocation identified. IMPRESSION: Swelling. No acute fracture or dislocation appreciated. <Electronically signed by Chad Mcdaniel > 08/18/20 [id number]
--- NOTE | 2020-08-18 13:24 | REP ---
INDICATION: twisted ankle COMPARISON: None. TECHNIQUE: AP and lateral views of the right tibia/fibula. FINDINGS: No acute fracture or dislocation. Skeletal structures, joint spaces, and surrounding soft tissues are normal.. IMPRESSION: . No acute fracture or dislocation. <Electronically signed by Chad Mcdaniel > 08/18/20 [id number]
[2020-08-18 14:18] VITALS: BP 158/85
--- NOTE | 2020-08-19 07:28 | REP ---
INDICATION: hx of clots, on eliquis, pain to calf COMPARISON: None. TECHNIQUE: Small scale and color Doppler evaluation right lower extremity using linear high frequency transducer. FINDINGS: Ultrasound examination of the right lower extremity deep venous structures from the common femoral vein to the popliteal vein demonstrates normal compressibility flow and wave patterns in response to respiration and augmentation. There is no evidence for deep venous thrombosis. IMPRESSION: No evidence for deep venous thrombosis. <Electronically signed by Chad Mcdaniel > 08/18/20 [id number]
== END 2020-08-18 14:19 | disposition home or self-care (01) ==
LOC: M ED 11:30
DX: M25.571 Pain in right ankle and joints of right foot (principal); R22.41 Localized swelling, mass and lump, right lower limb; X50.0XXA Overexertion from strenuous movement or load, initial encounter; Y92.019 Unspecified place in single-family (private) house as the place of occurrence of the external cause; Y93.9 Activity, unspecified; Y99.9 Unspecified external cause status; I10 Essential (primary) hypertension; F17.200 Nicotine dependence, unspecified, uncomplicated; Z79.01 Long term (current) use of anticoagulants

== ENCOUNTER → 2020-09-09 | Outpatient (REF) | payer OTHER, MEDICAID ==
[~2020-09-09] MED LIST changes: +ACET-683 PO; +ECOT81TA5 PO
[2020-09-09 18:18] LABS: BASO % 0.8 % (0.0-1.0); EOS # 0.1 10^3/uL (0.0-0.5); EOS % 2.4 % (0.0-3.0); HEMATOCRIT 44.6 % (42.0-52.0); HEMOGLOBIN 14.7 g/dl (13.5-17.5); LYMPH # 1.2 10^3/uL (1.5-5.0); LYMPH % 33.1 % (24.0-44.0); MEAN CORPUSCULAR HEMOGLOBIN 28.9 pg (27.0-33.0); MEAN CORPUSCULAR VOLUME 87.8 fl (80.0-96.0); MONO # 0.4 10^3/uL (0.0-0.8); NEUTROPHILS % 53.4 % (36.0-66.0); PLATELET COUNT, AUTOMATED 112 10^3/uL (150-450); RED BLOOD COUNT 5.08 10^6/uL (4.30-6.10); WHITE BLOOD COUNT 3.7 10^3/uL (4.0-10.0)
[2020-09-09 18:39] LABS: HEMOGLOBIN A1c 5.7 %
[2020-09-09 19:14] LABS: ALBUMIN 3.8 GM/DL (3.2-5.2); ALT/SGPT 78 U/L (12-78); BILIRUBIN,TOTAL 0.4 MG/DL (0.2-1.0); BLOOD UREA NITROGEN 15 MG/DL (7-18); CALCIUM LEVEL 8.5 MG/DL (8.5-10.1); CARBON DIOXIDE LEVEL 27 MEQ/L (21-32); CHLORIDE LEVEL 106 MEQ/L (98-107); CHOLESTEROL LEVEL 217 MG/DL (<200); CHOLESTEROL RISK RATIO 4.428 (<5); CREATININE FOR GFR 1.04 MG/DL (0.70-1.30); FREE T4 0.76 NG/DL (0.76-1.46); GLOMERULAR FILTRATION RATE > 60.0 (>60); GLUCOSE, FASTING 104 MG/DL (70-100); HDL CHOLESTEROL 49 MG/DL (>40); LDL CHOLESTEROL 123 MG/DL (<100); NON-HDL-C 168 MG/DL; SODIUM LEVEL 140 MEQ/L (136-145); TOTAL 25(OH) VITAMIN D 27.4 NG/ML (30.0-100.0); TOTAL PROTEIN 7.6 GM/DL (6.4-8.2); TRIGLYCERIDES LEVEL 224 MG/DL (<150)
[2020-09-11 23:07] LABS: PSA TOTAL 0.5 ng/mL (0.0-4.0)
== END ==
LOC: M LAB REF 16:22
PROVIDERS: ATTEND Nurse Practitioner Family
DX: R73.03 Prediabetes (principal); I10 Essential (primary) hypertension; Z13.228 Encounter for screening for other metabolic disorders; E66.9 Obesity, unspecified

== ENCOUNTER 2021-03-26 15:02 | Emergency (ER) | payer OTHER, MEDICAID ==
[~2021-03-26] VITALS: Ht 185.4 cm; Wt 127.3 kg
[~2021-03-26 15:02] MED LIST changes: -CEFD1CAP8 PO; +CEFD300C41 PO; +FLUO-96 PO; -FLUO20CA20 PO; +LOSA50TA28 PO; -LOSA50TA88 PO; -OLAN15TA PO; +OLAN15TA13 PO
[2021-03-26] MEDS ORDERED: FAMO1TAB11 PO (15:34)
[2021-03-26] MEDS ORDERED: SILD100T PO (15:34)
[2021-03-26] MEDS ORDERED: ALBU8.5H INH (15:34)
[2021-03-26 15:47] LABS: BASO % 0.7 % (0.0-1.0); EOS # 0.1 10^3/uL (0.0-0.5); HEMATOCRIT 43.5 % (42.0-52.0); HEMOGLOBIN 14.2 g/dl (13.5-17.5); LYMPH # 1.4 10^3/uL (1.5-5.0); LYMPH % 31.5 % (24.0-44.0); MEAN CORPUSCULAR HEMOGLOBIN 27.9 pg (27.0-33.0); MEAN CORPUSCULAR HGB CONC 32.6 g/dl (32.0-36.5); MEAN CORPUSCULAR VOLUME 85.5 fl (80.0-96.0); MONO # 0.5 10^3/uL (0.0-0.8); NEUTROPHILS # 2.4 10^3/uL (1.5-8.5); NEUTROPHILS % 54.6 % (36.0-66.0); PLATELET COUNT, AUTOMATED 141 10^3/uL (150-450); RED BLOOD COUNT 5.09 10^6/uL (4.30-6.10); WHITE BLOOD COUNT 4.5 10^3/uL (4.0-10.0)
[2021-03-26 15:58] LABS: INR 0.93; PROTHROMBIN TIME 12.9 SECONDS (12.7-14.5)
[2021-03-26 15:59] LABS: PARTIAL THROMBOPLASTIN TIME 28.9 SECONDS (25.9-37.0)
[2021-03-26 16:30] LABS: ALBUMIN 3.7 GM/DL (3.2-5.2); ALT/SGPT 170 U/L (12-78); BILIRUBIN,DIRECT < 0.1 MG/DL (0.0-0.2); BILIRUBIN,TOTAL 0.3 MG/DL (0.2-1.0); BLOOD UREA NITROGEN 11 MG/DL (7-18); CALCIUM LEVEL 9.6 MG/DL (8.5-10.1); CARBON DIOXIDE LEVEL 27 MEQ/L (21-32); CHLORIDE LEVEL 110 MEQ/L (98-107); CREATININE FOR GFR 1.04 MG/DL (0.70-1.30); GLOMERULAR FILTRATION RATE > 60.0 (>60); GLUCOSE, FASTING 93 MG/DL (70-100); NT-PRO BNP 59 PG/ML (<125); POTASSIUM SERUM 4.7 MEQ/L (3.5-5.1); SODIUM LEVEL 142 MEQ/L (136-145); TOTAL PROTEIN 7.5 GM/DL (6.4-8.2)
[2021-03-26] MEDS ORDERED: ISOVUE-370 76% 100ML VIAL As Ordered ONE (16:45)
[2021-03-26 18:02] VITALS: BP 150/80
== END 2021-03-26 18:04 | disposition home or self-care (01) ==
LOC: M ED 15:02
DX: R07.89 Other chest pain (principal); R00.1 Bradycardia, unspecified; I10 Essential (primary) hypertension; F17.200 Nicotine dependence, unspecified, uncomplicated; Z79.02 Long term (current) use of antithrombotics/antiplatelets; Z79.899 Other long term (current) drug therapy
CPT/HCPCS: 36415; 71045; 71275; 80048; 80076; 83880; 84443; 85025; 85610; 85730; 93005; 93041; 94760; 99284; Q9967

== ENCOUNTER 2021-04-30 17:05 | Emergency (ER) | payer OTHER, MEDICAID ==
[~2021-04-30 17:05] MED LIST changes: +ALBU8.5H INH; +FAMO1TAB11 PO; +SILD100T PO
[2021-04-30 21:14] LABS: BASO # 0.1 10^3/uL (0.0-0.2); BASO % 0.6 % (0.0-1.0); EOS % 0.2 % (0.0-3.0); HEMATOCRIT 47.1 % (42.0-52.0); LYMPH % 12.2 % (24.0-44.0); MEAN CORPUSCULAR HEMOGLOBIN 27.8 pg (27.0-33.0); MEAN CORPUSCULAR VOLUME 81.9 fl (80.0-96.0); MONO # 0.5 10^3/uL (0.0-0.8); MONO % 6.2 % (2.0-8.0); NEUTROPHILS # 6.8 10^3/uL (1.5-8.5); NEUTROPHILS % 80.2 % (36.0-66.0); PLATELET COUNT, AUTOMATED 153 10^3/uL (150-450); RED BLOOD COUNT 5.75 10^6/uL (4.30-6.10); WHITE BLOOD COUNT 8.5 10^3/uL (4.0-10.0)
[2021-04-30 21:39] LABS: BLOOD UREA NITROGEN 11 MG/DL (7-18); CALCIUM LEVEL 9.9 MG/DL (8.5-10.1); CARBON DIOXIDE LEVEL 27 MEQ/L (21-32); CHLORIDE LEVEL 103 MEQ/L (98-107); CREATININE FOR GFR 1.33 MG/DL (0.70-1.30); GLOMERULAR FILTRATION RATE > 60.0 (>60); GLUCOSE, FASTING 110 MG/DL (70-100); NT-PRO BNP 7 PG/ML (<125); SODIUM LEVEL 137 MEQ/L (136-145)
[2021-04-30 21:48] LABS: RSV AMPLIFICATION NEGATIVE (NEGATIVE)
[2021-04-30 22:58] VITALS: BP 142/86
== END 2021-04-30 22:59 | disposition home or self-care (01) ==
LOC: EDBD 17:05 → M ED 17:05
DX: B34.9 Viral infection, unspecified (principal); I10 Essential (primary) hypertension; R00.0 Tachycardia, unspecified; F17.200 Nicotine dependence, unspecified, uncomplicated

== ENCOUNTER → 2022-08-25 | Outpatient (REF) | payer OTHER, MEDICAID ==
[2022-08-25 17:19] LABS: ALBUMIN 4.3 G/DL (3.2-5.2); ALKALINE PHOSPHATASE 85 U/L (46-116); ALT/SGPT 96 U/L (7.0-40); AST/SGOT 42 U/L (<34); BILIRUBIN,DIRECT 0.2 MG/DL (<0.4); BLOOD UREA NITROGEN 8 MG/DL (9-23); CALCIUM LEVEL 9.4 MG/DL (8.5-10.1); CARBON DIOXIDE LEVEL 27 MMOL/L (20-31); CHLORIDE LEVEL 106 MMOL/L (98-107); CREATININE FOR GFR 1.19 MG/DL (0.70-1.30); GLOMERULAR FILTRATION RATE > 60.0 (>60); GLUCOSE, FASTING 102 MG/DL (60-100); SODIUM LEVEL 138 MMOL/L (136-145); TOTAL PROTEIN 7.7 G/DL (5.7-8.2)
[2022-08-25 17:24] LABS: HEPATITIS B SURFACE ANTIBODY NEGATIVE (POSITIVE)
[2022-08-25 17:37] LABS: HEPATITIS B SURFACE ANTIGEN NEGATIVE (NEGATIVE)
== END ==
LOC: M LAB REF 16:19
PROVIDERS: ATTEND Pediatrics
DX: R60.0 Localized edema (principal); R74.01 Elevation of levels of liver transaminase levels

== ENCOUNTER → 2023-03-08 | Outpatient (REF) | payer OTHER ==
[~2023-03-08] MED LIST changes: -CEFD300C41 PO; +CEFD300C42 PO
[2023-03-08 13:56] LABS: BASO % 0.8 % (0.0-1.0); EOS # 0.1 10^3/uL (0.0-0.5); EOS % 2.8 % (0.0-3.0); HEMATOCRIT 48.6 % (42.0-52.0); HEMOGLOBIN 16.1 g/dl (13.5-17.5); LYMPH # 1.9 10^3/uL (1.5-5.0); LYMPH % 37.4 % (24.0-44.0); MEAN CORPUSCULAR HEMOGLOBIN 28.4 pg (27.0-33.0); MEAN CORPUSCULAR HGB CONC 33.1 g/dl (32.0-36.5); MEAN CORPUSCULAR VOLUME 85.9 fl (80.0-96.0); MONO # 0.5 10^3/uL (0.0-0.8); MONO % 10.3 % (2.0-8.0); NEUTROPHILS # 2.4 10^3/uL (1.5-8.5); NEUTROPHILS % 48.5 % (36.0-66.0); PLATELET COUNT, AUTOMATED 142 10^3/uL (150-450); RED BLOOD COUNT 5.66 10^6/uL (4.30-6.10)
[2023-03-08 14:07] LABS: HEMOGLOBIN A1c 5.4 % (4.0-6.0)
[2023-03-08 14:28] LABS: ALBUMIN 4.1 G/DL (3.2-5.2); ALKALINE PHOSPHATASE 70 U/L (46-116); ALT/SGPT 154 U/L (7.0-40); AST/SGOT 52 U/L (<34); BILIRUBIN,TOTAL 0.8 MG/DL (0.3-1.2); BLOOD UREA NITROGEN 12 MG/DL (9-23); CARBON DIOXIDE LEVEL 28 MMOL/L (20-31); CHLORIDE LEVEL 105 MMOL/L (98-107); CHOLESTEROL LEVEL 276 MG/DL (<200); CHOLESTEROL RISK RATIO 6.23 (<5); CREATININE FOR GFR 1.07 MG/DL (0.70-1.30); GLOMERULAR FILTRATION RATE > 60.0 (>60); GLUCOSE, FASTING 102 MG/DL (60-100); HDL CHOLESTEROL 44.3 MG/DL (>40); LDL CHOLESTEROL 166.3 MG/DL (<100); NON-HDL-C 231.7 MG/DL; POTASSIUM SERUM 4.7 MMOL/L (3.5-5.1); SODIUM LEVEL 141 MMOL/L (136-145); THYROID STIMULATING HORMONE 5.293 uIU/ML (0.55-4.78); TOTAL PROTEIN 7.5 G/DL (5.7-8.2); TRIGLYCERIDES LEVEL 327 MG/DL (<150)
== END ==
LOC: M LAB REF 13:01
PROVIDERS: ATTEND Nurse Practitioner Family
DX: Z13.228 Encounter for screening for other metabolic disorders (principal)

== ENCOUNTER → 2023-04-27 | Outpatient (CLI) | payer OTHER ==
[~2023-04-27] MED LIST changes: +CEFD1CAP9 PO; -CEFD300C42 PO
[2023-04-27 15:57] LABS: BASO % 0.8 % (0.0-1.0); EOS # 0.1 10^3/uL (0.0-0.5); EOS % 1.7 % (0.0-3.0); HEMATOCRIT 47.6 % (42.0-52.0); HEMOGLOBIN 15.9 g/dl (13.5-17.5); LYMPH # 1.9 10^3/uL (1.5-5.0); LYMPH % 40.2 % (24.0-44.0); MEAN CORPUSCULAR HEMOGLOBIN 29.2 pg (27.0-33.0); MEAN CORPUSCULAR HGB CONC 33.4 g/dl (32.0-36.5); MEAN CORPUSCULAR VOLUME 87.3 fl (80.0-96.0); MONO # 0.4 10^3/uL (0.0-0.8); NEUTROPHILS # 2.3 10^3/uL (1.5-8.5); NEUTROPHILS % 48.1 % (36.0-66.0); PLATELET COUNT, AUTOMATED 158 10^3/uL (150-450); RED BLOOD COUNT 5.45 10^6/uL (4.30-6.10); WHITE BLOOD COUNT 4.8 10^3/uL (4.0-10.0)
== END ==
LOC: M PLALAB 12:08
PROVIDERS: ATTEND Internal Medicine Hematology
DX: I82.90 Acute embolism and thrombosis of unspecified vein (principal)

== ENCOUNTER → 2023-05-20 | Outpatient (REF) | payer OTHER ==
[2023-05-20 14:37] LABS: THYROID STIMULATING HORMONE 4.492 uIU/ML (0.55-4.78)
[2023-05-20 14:39] LABS: FREE T4 0.97 NG/DL (0.89-1.76)
[2023-05-20 14:40] LABS: ALBUMIN 3.9 G/DL (3.2-5.2); BILIRUBIN,DIRECT 0.1 MG/DL (<0.4); BILIRUBIN,TOTAL 0.7 MG/DL (0.3-1.2); CHOLESTEROL RISK RATIO 6.39 (<5); HDL CHOLESTEROL 42.7 MG/DL (>40); LDL CHOLESTEROL 164.5 MG/DL (<100); NON-HDL-C 230.3 MG/DL; TOTAL PROTEIN 7.3 G/DL (5.7-8.2)
== END ==
LOC: M LAB REF 13:25
PROVIDERS: ATTEND Nurse Practitioner Family
DX: R79.89 Other specified abnormal findings of blood chemistry (principal); R74.8 Abnormal levels of other serum enzymes; R94.6 Abnormal results of thyroid function studies

== ENCOUNTER → 2023-06-11 | Outpatient (CLI) | payer OTHER | LOC: M PLALAB 13:02 | PROVIDERS: ATTEND Internal Medicine Hematology | DX: I82.90 Acute embolism and thrombosis of unspecified vein (principal) ==

== ENCOUNTER → 2023-07-14 | Outpatient (CLI) | payer OTHER ==
[~2023-07-14] MED LIST changes: +HEPARIN 1,000UNITS/ML 10ML VIAL (FOR RADIOLOGY & DIALYSIS ONLY) As Ordered ONE; +ISOVUE-300 61% 100ML VIAL As Ordered ONE; +LIDOCAINE 1% MDV 20ML VIAL As Ordered ONE; +LIDOCAINE W/EPINEPHRINE 1% 20ML VIAL As Ordered ONE; +MIDAZOLAM INJ 2MG/2ML VIAL As Ordered ONE; +fentaNYL 100 MCG/2 ML INJECTION As Ordered ONE
[2023-07-14 08:30] VITALS: TEMP 97.1
[2023-07-14 08:52] LABS: HEMATOCRIT 45.2 % (42.0-52.0); HEMOGLOBIN 15.4 g/dl (13.5-17.5); MEAN CORPUSCULAR HEMOGLOBIN 29.1 pg (27.0-33.0); MEAN CORPUSCULAR HGB CONC 34.1 g/dl (32.0-36.5); MEAN CORPUSCULAR VOLUME 85.3 fl (80.0-96.0); PLATELET COUNT, AUTOMATED 143 10^3/uL (150-450); WHITE BLOOD COUNT 4.6 10^3/uL (4.0-10.0)
[2023-07-14 09:23] LABS: INR 1.01
[2023-07-14 11:30] VITALS: BP 114/77; O2SAT 95
== END ==
LOC: M IRPRO 07:49
PROVIDERS: ATTEND Internal Medicine Hematology
DX: I87.1 Compression of vein (principal)
CPT/HCPCS: 75825; 85027; 85610; C1887; C1894; Q9967

== ENCOUNTER → 2023-08-26 | Outpatient (REF) | payer OTHER ==
[~2023-08-26] MED LIST changes: -HEPARIN 1,000UNITS/ML 10ML VIAL (FOR RADIOLOGY & DIALYSIS ONLY) As Ordered ONE; -ISOVUE-300 61% 100ML VIAL As Ordered ONE; -LIDOCAINE 1% MDV 20ML VIAL As Ordered ONE; -LIDOCAINE W/EPINEPHRINE 1% 20ML VIAL As Ordered ONE; -MIDAZOLAM INJ 2MG/2ML VIAL As Ordered ONE; -fentaNYL 100 MCG/2 ML INJECTION As Ordered ONE
[2023-08-26 14:19] LABS: CHOLESTEROL RISK RATIO 3.65 (<5); HDL CHOLESTEROL 46.2 MG/DL (>40); LDL CHOLESTEROL 106.2 MG/DL (<100); NON-HDL-C 122.8 MG/DL
== END ==
LOC: M LAB REF 12:40
PROVIDERS: ATTEND Nurse Practitioner Family
DX: E78.5 Hyperlipidemia, unspecified (principal)

== ENCOUNTER → 2023-09-01 | Outpatient (REF) | payer OTHER ==
[2023-09-01 18:55] LABS: GC DNA AMPLIFICATION NEGATIVE (NEGATIVE)
[2023-09-01 19:49] LABS: Trichomonas vaginalis (AMP) NOT DETECTED (NEGATIVE)
== END ==
LOC: M LAB REF 16:27
PROVIDERS: ATTEND Nurse Practitioner Family
DX: R10.30 Lower abdominal pain, unspecified (principal)

== ENCOUNTER → 2023-09-10 | Outpatient (CLI) | payer OTHER | LOC: M RAD 12:37 | PROVIDERS: ATTEND Nurse Practitioner Family | DX: R10.2 Pelvic and perineal pain (principal) ==

== ENCOUNTER → 2023-09-27 | Outpatient (CLI) | payer OTHER | LOC: M RAD 11:05 | PROVIDERS: ATTEND Nurse Practitioner Family | DX: R10.30 Lower abdominal pain, unspecified (principal); K76.0 Fatty (change of) liver, not elsewhere classified ==

== ENCOUNTER → 2024-01-17 | Outpatient (REF) | payer OTHER ==
[~2024-01-17] MED LIST changes: +CLAR10CA3 PO; +FLON1SPR; +LIDO30CR18 TOP; +LOPI600T PO; +RANO500T2 PO; +RECT5CRE EX
[2024-01-17 19:43] LABS: ALBUMIN 4.1 G/DL (3.2-5.2); ALKALINE PHOSPHATASE 57 U/L (46-116); ALT/SGPT 32 U/L (7.0-40); AST/SGOT 14 U/L (<34); BILIRUBIN,TOTAL 0.4 MG/DL (0.3-1.2); BLOOD UREA NITROGEN 10 MG/DL (9-23); CALCIUM LEVEL 9.6 MG/DL (8.5-10.1); CARBON DIOXIDE LEVEL 27 MMOL/L (20-31); CHLORIDE LEVEL 109 MMOL/L (98-107); CHOLESTEROL LEVEL 182 MG/DL (<200); CHOLESTEROL RISK RATIO 4.26 (<5); CREATININE FOR GFR 1.14 MG/DL (0.70-1.30); GLOMERULAR FILTRATION RATE > 60.0 (>60); GLUCOSE, FASTING 88 MG/DL (60-100); HDL CHOLESTEROL 42.7 MG/DL (>40); LDL CHOLESTEROL 106.3 MG/DL (<100); NON-HDL-C 139.3 MG/DL; POTASSIUM SERUM 4.9 MMOL/L (3.5-5.1); SODIUM LEVEL 142 MMOL/L (136-145); TOTAL PROTEIN 7.5 G/DL (5.7-8.2); TRIGLYCERIDES LEVEL 165 MG/DL (<150)
== END ==
LOC: M LAB REF 17:15
PROVIDERS: ATTEND Nurse Practitioner Family
DX: E78.5 Hyperlipidemia, unspecified (principal)

== ENCOUNTER 2024-04-20 08:45 | Day surgery (SDC) | payer OTHER ==
[~2024-04-20] VITALS: Ht 188 cm; Wt 133.5 kg
[~2024-04-20 08:45] MED LIST changes: +LIDOCAINE 2% 100MG/5ML SDV (FOR ANES.) As Ordered ONE; +MIRA3350 PO; -OLAN15TA13 PO; +OLAN15TA69 PO; +propofoL 200 MG/20 ML VIAL As Ordered ONE
[2024-04-20 09:33] VITALS: TEMP 97.5
[2024-04-20 09:52] VITALS: BP 123/72; O2SAT 94
== END 2024-04-20 09:58 | disposition home or self-care (01) ==
LOC: M OPP 08:45
PROVIDERS: ATTEND Surgery
DX: K62.5 Hemorrhage of anus and rectum (principal); K60.2 Anal fissure, unspecified; K64.2 Third degree hemorrhoids; K64.4 Residual hemorrhoidal skin tags; I10 Essential (primary) hypertension; Z86.711 Personal history of pulmonary embolism; Z79.899 Other long term (current) drug therapy; Z79.01 Long term (current) use of anticoagulants; F31.9 Bipolar disorder, unspecified